=== PATIENT | female | born 1950 | race Caucasian/White ===

== ENCOUNTER → 2023-07-16 16:34 | Outpatient (REF) | payer OTHER, SELFPAY | LOC: HWRAD 16:34 | PROVIDERS: ATTENDING PHYSICIAN Nurse Practitioner | DX: M25.562 Pain in left knee (principal) | CPT/HCPCS: 73564 ==

== ENCOUNTER → 2023-07-31 15:35 | Outpatient (REF) | payer OTHER, SELFPAY | LOC: HWRAD 15:35 | PROVIDERS: ATTENDING PHYSICIAN Nurse Practitioner | DX: M25.552 Pain in left hip (principal) | CPT/HCPCS: 73502 ==

== ENCOUNTER → 2023-08-15 07:18 | Outpatient (REF) | payer OTHER, SELFPAY | LOC: HWRAD 07:18 | PROVIDERS: ATTENDING PHYSICIAN Nurse Practitioner | DX: M25.562 Pain in left knee (principal) | CPT/HCPCS: 76882 ==

== ENCOUNTER 2024-02-19 11:37 | Emergency (ER) | payer OTHER, SELFPAY ==
[2024-02-19 11:43] VITALS: BP 139/85
--- NOTE | 2024-02-19 11:49 | ED.GENMED ---
History of Present Illness
General
Chief Complaint: Chest Pain
Source: patient
Exam Limitations: none
Time Seen by Provider: 02/19/24 11:48
Nursing documentation reviewed up to this point in time: agreed with
History of Present Illness
History of Present Illness:
73 yo female w h/o [place] 2012 w stent, HTN, HLD presents stating she was awakened 1:30 a.m. (7 hours ago) with mid to left chest pain 5/10 with sweating. She talked herself into relaxing and pain improved some, she fell back asleep, woke at 8:30,
played a game of tennis, chest pain persistent but 'mild.' Now pain is 1/10. She is leaving for [place] in a few days and wants to be checked prior to going.
Past History
Past History
ED Past Medical History: None, Cancer, HTN, Hypercholesterolemia and Other
ED Past Surgical History: Appendectomy and Cardiac (stent 2012)
Social History
Tobacco: Non-smoker
Alcohol: Occasional
Personal:
Living: with family
Review of Systems
Review of Systems
Allergies reviewed?: Yes
All Other Systems: ROS reviewed and negative except as documented in HPI and ROS
Constitutional: Denies fever or fatigue
Respiratory: Denies trouble breathing
Cardiac: Reports chest pain; Denies palpitations or syncope
ABD/GI: Denies abdominal pain or nausea
: Denies dysuria or difficulty voiding
Musculoskeletal: Reports no symptoms
Skin: Reports no symptoms
Neurological: Reports no symptoms
Phy Exam
Physical Exam
Physical Exam:
GENERAL: No acute distress. A&Ox3.
CONSTITUTIONAL: Afebrile.
EYES: clear, conjunctivae normal
ENMT: moist mucus membranes, Pharynx nl
RESPIRATORY: Regular respirations, nonlabored, lungs clear.
CARDIOVASCULAR: Regular rate and rhythm, no murmurs, no rubs.
GI: Soft, nontender, normal BS
MUSCULOSKELETAL: Moves with ease. Well perfused.
SKIN: Warm, dry, pink
PSYCH: Normal mood and affect. Well kept, interactive and appropriate
NEUROLOGIC: Awake, alert and oriented. No focal neurological deficits
Scores
Heart Score for Chest Pain Patients
STEMI patient?: Not applicable
Course
Orders/Labs/Results
Orders:
Orders
02/19/24 11:38
Electrocardiogram (*1) Urgent
Reason for Study: Chest Pain
EKG- Treatment ONCE
02/19/24 12:00
CR Chest - 2 Views Urgent
Comment:
Reason For Exam: chest pain
02/19/24 12:04
Complete Blood Count/With Diff Urgent
Comprehensive Metabolic Panel Urgent
Troponin I Urgent
02/19/24 14:47
Troponin I Urgent
Abnormal Lab Results
02/19/24
12:04
MPV 11.3 H fL
(7.4-10.4)
Glucose 132 H mg/dl
(70-99)
02/19/24 12:04
02/19/24 12:04
Vital Signs
Initial and Last Documented VS:
Initial Vital Signs
Temp Pulse Resp BP Pulse Ox
98.6 F 79 18 139/85 98
02/19/24 11:43 02/19/24 11:43 02/19/24 11:43 02/19/24 11:43 02/19/24 11:43
Last Documented Vital Signs
Temp Pulse Resp BP Pulse Ox
98.6 F 64 15 146/68 97
02/19/24 11:43 02/19/24 15:30 02/19/24 15:30 02/19/24 15:00 02/19/24 15:30
MDM/Problems Addressed
Differential Diagnosis Includes:
ACS, musculoskeletal pain, GERD
MDM/Problems Addressed:
73 yo female w h/o [place] 2012 w stent, HTN, HLD presents stating she was awakened 1:30 a.m. (7 hours ago) with mid to left chest pain 5/10 with sweating. She talked herself into relaxing and pain improved some, she fell back asleep, woke at 8:30,
played a game of tennis, chest pain persistent but 'mild.' Now pain is 1/10. She is leaving for [place] in a few days and wants to be checked prior to going.
EKG: NSR
1:00 PM:
CBC normal
CMP normal
Troponin normal
3:30 PM: Second troponin negative
Patient stable for discharge
*EKG
EKG Intrepretation Date: 02/19/24
Interpretation: normal
Heart Rate: 74
Rate: normal
Rhythm: sinus
[place]: normal axis
Interval: normal interval
QRS Pattern: normal QRS
Ischemia: no ischemia
*Critical Care Note
Total Time (30-74mins, 75-104mins- exclusive of procedures): Not Applicable
ED Attending Note
-
Portions of this chart may have been created with voice recognition software.� Occasional wrong word or��sound alike� substitutions may have occurred due to the inherent limitations of voice recognition software.
Discharge Plan
Departure
Patient Disposition: Home (Routine Discharge)
Date of Disposition: 02/19/24
Time of Disposition: 15:30
Patient with high blood pressure during this ER visit?: No
Condition: Good
Discharge Problem:
Atypical chest pain
Instructions: Chest Pain That Is Not Caused by the Heart (DC)
Prescriptions:
No Action
atorvastatin 40 MG tablet
40 mg PO QPM Qty: 30 11RF
aspirin 81 MG tablet,delayed release (DR/EC)
81 mg PO DAILY Qty: 0 0RF
ascorbic acid (vitamin C) [Vitamin C] 1,000 MG tablet
1,000 mg PO DAILY
Glucosamin+Chondroit Chew Tab
1 tab PO DAILY
tramadol 50 MG tablet
50 mg PO Q8HPRN PRN (Reason: pain) Qty: 20 0RF
Referrals:
Kj Vizcarra MD [Active] - Next open appointment
Kayy Duron MD [Family Provider] - As needed
Activity Restrictions/Additional Instructions:
As we discussed, your workup here today shows nothing worrisome.
Call the cardiology office to make an appoint for more thorough cardiac workup
Interventions
Interventions:
*Risk Screen - Suicide Last Done: 02/19/24 11:43
*General Assessment Last Done: 02/19/24 11:43
*Neglect/Abuse Screening Last Done: 02/19/24 11:43
*ED COVID-19 Vaccine History Last Done: 02/19/24 11:43
*Nursing Disposition Last Done: 02/19/24 15:39
ED- Cardiac Assessment Last Done: 02/19/24 13:17
Discharge Date and Time
Discharge Date/Time: 02/19/24 15:42
Print Language: SL[place]
[2024-02-19 12:00] VITALS: BP 115/58
[2024-02-19 12:19] LABS: % Basophils 0.7 % (0-2); % Eosinophils 1.7 % (0-6); % Immature Granulocytes 0.1 % (0-0.5); % Lymphocytes 27.4 % (20.5-51.1); % Monocytes 5.2 % (1.7-9.3); % Neutrophils 64.9 % (42.2-75.2); Absolute Basophils 0.1 10^3/uL (0-0.2); Absolute Eosinophils 0.1 10^3/uL (0-0.7); Absolute Lymphocytes 2.1 10^3/uL (1.2-3.4); Absolute Monocytes 0.4 10^3/uL (0.1-0.6); Absolute Neutrophils 4.9 10^3/uL (1.4-6.5); Hematocrit 39.1 % (37.0-47.0); Hemoglobin 13.1 g/dL (12.0-16.0); Mean Corp Hgb Conc. 33.5 g/dL (33.0-37.0); Mean Corpuscular Hgb 29.8 pg (27.0-31.0); Mean Corpuscular Volume 89.1 fL (81.0-99.0); Mean Platelet Volume 11.3 fL (7.4-10.4); Nucleated Red Blood Cells % 0 %; Platelet Count 293 10^3/uL (130-400); Red Blood Cell Count 4.39 10^6/uL (4.20-5.40); White Blood Cell Count 7.5 10^3/uL (4.8-10.8)
[2024-02-19 12:43] LABS: ALT (SGPT) 27 U/L (0-35); AST (SGOT) 31 U/L (14-36); Albumin 4.6 g/dl (3.5-5.0); Alkaline Phosphatase 75 U/L (38-126); Blood Urea Nitrogen 17 mg/dl (7-17); Calcium 9.8 mg/dl (8.4-10.2); Carbon Dioxide 28 mmol/L (22-30); Chloride 102 mmol/L (98-107); Glucose 132 mg/dl (70-99); Potassium 4.2 mmol/L (3.5-5.1); Sodium 141 mmol/L (135-145); Total Bilirubin 1.2 mg/dl (0.2-1.3); eGFR > 60.00
[2024-02-19 12:53] LABS: Troponin I < 0.012 ng/ml
[2024-02-19 13:14] VITALS: BP 129/83
[2024-02-19 14:00] VITALS: BP 142/81
[2024-02-19 15:00] VITALS: BP 146/68
[2024-02-19 15:19] LABS: Troponin I < 0.012 ng/ml
== END 2024-02-19 15:42 | disposition home or self-care (01) ==
LOC: EMR 11:37
PROVIDERS: Registered Nurse; EMERGENCY PHYSICIAN Emergency Medicine; FAMILY PHYSICIAN Internal Medicine
DX: R07.89 Other chest pain (principal); I10 Essential (primary) hypertension; E78.00 Pure hypercholesterolemia, unspecified
CPT/HCPCS: 99285; 71046; 80053; 84484; 85025; 93005

== ENCOUNTER → 2024-04-12 06:12 | Outpatient (REF) | payer OTHER, SELFPAY | LOC: MRI 3T 06:12 | PROVIDERS: ATTENDING PHYSICIAN Internal Medicine | DX: M25.562 Pain in left knee (principal) | CPT/HCPCS: 73721 ==

== ENCOUNTER 2024-08-25 10:11 | Emergency (ER) | payer OTHER, SELFPAY ==
[2024-08-25 10:23] VITALS: BP 132/90
--- NOTE | 2024-08-25 12:49 | ED.GENMED ---
History of Present Illness
General
Chief Complaint: Nose Bleed
Source: patient
Time Seen by Provider: 08/25/24 12:37
History of Present Illness
History of Present Illness:
73-year-old female on a baby aspirin presents with intermittent nosebleeds over the past 6 days. Comes from the left side of her nose. She was seen at an urgent care 2 days prior and it was not bleeding at that time. She denies shortness of
breath or lightheadedness. No chest pain. No known injury. No other
Past History
Past History
ED Past Medical History: None, Cancer, HTN, Hypercholesterolemia and Other
ED Past Surgical History: Appendectomy and Cardiac (stent 2012)
Social History
Tobacco: Non-smoker
Alcohol: Occasional
Personal:
Living: with family
Phy Exam
Physical Exam
Physical Exam:
General: Well-appearing female no acute respiratory distress
HEENT normocephalic atraumatic left nasal cavity with blood. There is bleeding over the anterior aspect of the nasal cavity right nasal cavity patent without any active bleeding
Course
Vital Signs
Initial and Last Documented VS:
Initial Vital Signs
Temp Pulse Resp BP Pulse Ox
97.8 F 68 16 132/90 94
08/25/24 10:23 08/25/24 10:23 08/25/24 10:23 08/25/24 10:23 08/25/24 10:23
Last Documented Vital Signs
Temp Pulse Resp BP Pulse Ox
97.8 F 68 16 132/90 94
08/25/24 10:23 08/25/24 10:23 08/25/24 10:23 08/25/24 10:23 08/25/24 10:23
MDM/Problems Addressed
Differential Diagnosis Includes:
Acute anterior epistaxis. All remaining blood was suctioned out of the left side of the nose. A piece of cotton soaked with lidocaine and epinephrine was placed into the left side of the nose. Will attempt to cauterize
*Critical Care Note
Total Time (30-74mins, 75-104mins- exclusive of procedures): Not Applicable
Update Note
Update Note:
The nose was cauterized using silver nitrate. This provided hemostasis. Patient was observed for a period of time and then discharged
ED Attending Note
-
Portions of this chart may have been created with voice recognition software.� Occasional wrong word or��sound alike� substitutions may have occurred due to the inherent limitations of voice recognition software.
Discharge Plan
Departure
Patient Disposition: Home (Routine Discharge)
Date of Disposition: 08/25/24
Time of Disposition: 14:06
Patient with high blood pressure during this ER visit?: No
Discharge Problem:
Acute anterior epistaxis
Prescriptions:
No Action
atorvastatin 40 MG tablet
40 mg PO QPM Qty: 30 11RF
aspirin 81 MG tablet,delayed release (DR/EC)
81 mg PO DAILY Qty: 0 0RF
ascorbic acid (vitamin C) [Vitamin C] 1,000 MG tablet
1,000 mg PO DAILY
Glucosamin+Chondroit Chew Tab
1 tab PO DAILY
tramadol 50 MG tablet
50 mg PO Q8HPRN PRN (Reason: pain) Qty: 20 0RF
Referrals:
Nigel Vega MD [Active] -
Kayy Duron MD [Family Provider] -
Activity Restrictions/Additional Instructions:
Keep nasal mucosa moist with Vaseline. Return if worse otherwise follow-up with your nose and throat doctor
Discharge Date and Time
Print Language: [place]
== END 2024-08-25 14:38 | disposition home or self-care (01) ==
LOC: EMR 10:11
PROVIDERS: EMERGENCY PHYSICIAN Emergency Medicine; FAMILY PHYSICIAN Internal Medicine
DX: R04.0 Epistaxis (principal); I10 Essential (primary) hypertension; E78.00 Pure hypercholesterolemia, unspecified; Z95.5 Presence of coronary angioplasty implant and graft; Z79.82 Long term (current) use of aspirin
CPT/HCPCS: 30901; 99282

== ENCOUNTER 2025-02-27 08:14 | Emergency (ER) | payer OTHER, SELFPAY ==
[2025-02-27 08:40] VITALS: BP 190/100
[2025-02-27 08:57] VITALS: BMI 27.6
[2025-02-27 09:15] VITALS: BP 161/71
--- NOTE | 2025-02-27 09:33 | ED.GENMED ---
History of Present Illness
General
Chief Complaint: Blood Pressure Problem
Time Seen by Provider: 02/27/25 08:53
History of Present Illness
History of Present Illness:
Patient is a 74-year-old woman with history of prior [place] with stent, hyperlipidemia hypertension presenting to the emergency department with elevated blood pressure. Patient states around 6 AM she woke up feeling not right. She felt symptoms
similar to her prior heart attack. She states that her face felt flushed she has a dry throat and had some chest tightness that is now resolved. None of the symptoms were exertional. No shortness of breath. No URI symptoms no leg swelling
hemoptysis. No diaphoresis nausea vomiting back pain. She checked her blood pressure and it was elevated so she came in for further evaluation. She did take her medications prior to arrival. Patient does follow with cardiology. No recent stress
or cath test. No exertional symptoms prior to this event. She is extremely active. She is a non-smoker. She did take aspirin prior to arrival.
Past History
Past History
ED Past Medical History: None, Cancer, HTN, Hypercholesterolemia and Other
ED Past Surgical History: Appendectomy and Cardiac (stent 2012)
Social History
Tobacco: Non-smoker
Alcohol: Occasional
Personal:
Living: with family
Phy Exam
Physical Exam
Physical Exam:
GENERAL: in no acute distress
HEENT: normocephalic, extraocular movements intact, moist oral mucosa
NECK: normal inspection
RESPIRATORY: no respiratory distress, clear to auscultation bilaterally
CARDIOVASCULAR: regular rate and rhythm, 2+ radial pulses
ABDOMEN/: soft, non-distended, non-tender to palpation, no rebound or guarding
EXTREMITIES: non-tender, no edema/swelling
NEUROLOGIC: awake and alert, moves all extremities
SKIN: warm
Course
Orders/Labs/Results
Orders:
Orders
02/27/25 08:27
Electrocardiogram (*1) Urgent
Reason for Study: Hypertension, Benign
EKG- Treatment ONCE
02/27/25 09:32
EKG- Treatment ONCE
CR Chest - 2 Views Urgent
Comment:
Reason For Exam: chest pain
02/27/25 09:41
Basic Metabolic Panel Urgent
Complete Blood Count/With Diff Urgent
Troponin I Urgent
02/27/25 12:17
Troponin I Urgent
02/27/25 12:30
Electrocardiogram (*1) Urgent
Reason for Study: Chest Pain
Abnormal Lab Results
02/27/25
09:41
MCHC 32.6 L g/dL
(33.0-37.0)
MPV 11.1 H fL
(7.4-10.4)
Glucose 106 H mg/dl
(70-99)
02/27/25 09:41
02/27/25 09:41
Vital Signs
Initial and Last Documented VS:
Initial Vital Signs
Temp Pulse Resp BP Pulse Ox
98.1 F 60 18 190/100 100
02/27/25 08:40 02/27/25 08:40 02/27/25 08:40 02/27/25 08:40 02/27/25 08:40
Last Documented Vital Signs
Temp Pulse Resp BP Pulse Ox
98.1 F 56 13 156/65 100
02/27/25 08:40 02/27/25 10:45 02/27/25 10:45 02/27/25 10:07 02/27/25 09:45
MDM/Problems Addressed
Differential Diagnosis Includes:
Patient is a 74-year-old woman with history of prior RI with stent presenting to the emergency department with elevated blood pressure and feeling off as well as chest tightness that is not resolved. On arrival patient was hypertensive in the 190s
though during my evaluation blood pressure was in the 160s. Exam is otherwise reassuring. Differential consist of atypical ACS versus metabolic derangement or hypertensive emergency though less likely as patient is asymptomatic and pressures have
improved after taking her home medications. History exam not consistent with PE or dissection or pneumothorax. Will check blood work EKG chest x-ray.
*Pulse Oximetry
SaO2: 100
Oxygen Mode of Delivery: Room air
Patient hypoxic: no
*Critical Care Note
Total Time (30-74mins, 75-104mins- exclusive of procedures): Not Applicable
Update Note
Update Note:
EKG per my interpretation with no ST elevation. Blood work reassuring. Delta troponin negative. Chest x-ray with no acute abnormality. Patient does have some slight tightness to the left side of her chest. I did offer patient discussion with
cardiology/admission for further evaluation though patient declined as she states that she has an event that she goes to [facility]. She does state that the tightness is very minimal. Given that both her troponins and EKG have been normal patient
would prefer to be discharged. Will discharge with rapid cardiology follow-up.
ED Attending Note
-
Portions of this chart may have been created with voice recognition software.� Occasional wrong word or��sound alike� substitutions may have occurred due to the inherent limitations of voice recognition software.
Discharge Plan
Departure
Patient Disposition: Home (Routine Discharge)
Date of Disposition: 02/27/25
Time of Disposition: 12:55
Patient with high blood pressure during this ER visit?: Yes
Discharge Problem:
Chest pain
Instructions: Chest Pain DCA Follow Up
Prescriptions:
No Action
atorvastatin 40 MG tablet
40 mg PO QPM Qty: 30 11RF
aspirin 81 MG tablet,delayed release (DR/EC)
81 mg PO DAILY Qty: 0 0RF
ascorbic acid (vitamin C) [Vitamin C] 1,000 MG tablet
1,000 mg PO DAILY
Glucosamin+Chondroit Chew Tab
1 tab PO DAILY
tramadol 50 MG tablet
50 mg PO Q8HPRN PRN (Reason: pain) Qty: 20 0RF
Referrals:
Duron,Kayy S., MD [Family Provider, Internal Medicine]
Activity Restrictions/Additional Instructions:
You were evaluated in the Emergency Department today for chest pain. Your evaluation has shown no signs of medical conditions requiring emergent intervention at this time, however we recommend that you follow up with your primary care physician or
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
Please schedule an appointment for follow up with your primary care physician as soon as possible.
Return to the Emergency Department if you experience worsening or uncontrolled chest pain, shortness of breath, light headedness, feeling faint, nausea, vomiting, or any other concerning symptoms.
Thank you for choosing us for your care.
Interventions
Interventions:
*Risk Screen - Suicide Last Done: 02/27/25 08:40
*General Assessment Last Done: 02/27/25 08:40
*Neglect/Abuse Screening Last Done: 02/27/25 08:40
*ED- Fall Risk Assessment Last Done: 02/27/25 08:57
*ED COVID-19 Vaccine History Last Done: 02/27/25 08:57
*ED Influenza Vaccine History Last Done: 02/27/25 08:57
ED- Cardiac Assessment Last Done: 02/27/25 08:57
ED- Neurological Assessment Last Done: 02/27/25 08:57
ED- Pulmonary Assessment Last Done: 02/27/25 08:57
Discharge Date and Time
Print Language: [id number]
[2025-02-27 09:50] LABS: Hematocrit 40.5 % (37.0-47.0); Hemoglobin 13.2 g/dL (12.0-16.0); Mean Corp Hgb Conc. 32.6 g/dL (33.0-37.0); Mean Corpuscular Volume 89.0 fL (81.0-99.0); Nucleated Red Blood Cells % 0 %; Platelet Count 274 10^3/uL (130-400); Red Cell Dist. Width 13.2 % (11.5-14.5)
[2025-02-27 10:06] LABS: Blood Urea Nitrogen 17 mg/dl (7-17); Calcium 9.8 mg/dl (8.4-10.2); Carbon Dioxide 29 mmol/L (22-30); Chloride 103 mmol/L (98-107); Estimated Creatinine Clearance 60 ml/min; Glucose 106 mg/dl (70-99); Potassium 4.5 mmol/L (3.5-5.1); Sodium 136 mmol/L (135-145); eGFR > 60.00
[2025-02-27 10:07] VITALS: BP 156/65
[2025-02-27 10:21] LABS: Troponin I < 0.012 ng/ml
[2025-02-27 11:00] VITALS: BP 158/69
[2025-02-27 12:49] LABS: Troponin I < 0.012 ng/ml
== END 2025-02-27 13:05 | disposition home or self-care (01) ==
LOC: EMR 08:14
PROVIDERS: EMERGENCY PHYSICIAN Student in an Organized Health Care Education/Training Program; FAMILY PHYSICIAN Internal Medicine
DX: R07.89 Other chest pain (principal); E78.00 Pure hypercholesterolemia, unspecified; I10 Essential (primary) hypertension; I25.2 Old myocardial infarction; Z90.49 Acquired absence of other specified parts of digestive tract; Z95.5 Presence of coronary angioplasty implant and graft
CPT/HCPCS: 99283; 71046; 80048; 84484; 85025; 93005

== ENCOUNTER → 2025-03-24 14:03 | Outpatient (REF) | payer OTHER, SELFPAY | LOC: HWRCS 14:03 | PROVIDERS: ATTENDING PHYSICIAN Physician Assistant Medical; FAMILY PHYSICIAN Internal Medicine | DX: I10 Essential (primary) hypertension (principal); I25.118 Atherosclerotic heart disease of native coronary artery with other forms of angina pectoris; R07.9 Chest pain, unspecified | CPT/HCPCS: 93306 ==